=== PATIENT | female | born 1940 | race Caucasian/White ===

== ENCOUNTER 2024-09-19 18:53 | Observation (INO) | payer MEDICARE, OTHER, SELFPAY ==
[2024-09-19 18:57] VITALS: BP 151/84; PULSE 115; RESP 18; TEMP 37; O2SAT 97; BMI 30.8
--- NOTE | 2024-09-19 19:12 | ED.GENADULT ---
HPI - General Adult General Date Seen: 09/19/24 Chief complaint: Constipation Stated complaint: no bowel movement for a week Time Seen by Provider: 09/19/24 19:08 History of Present Illness HPI narrative: 80 yo F he presenting to the ER today with concern for constipation. She has not a bowel movement in about a week. She had fallen and her left shoulder recently had and has been spending some time in a TCU. She was discharged from the TCU last Thursday, 6 days ago. She staying with her daughter. She has not had any bowel movements for a week so came here to the ER tonight. She does have a past medical history of AFib and history of PE so has been on warfarin for several years. Most recent INR was about a week ago and was 2.1. She is due for another INR check in 2 days. She has a history of previous hysterectomy, cholecystectomy. She had a bowel obstruction that required operative intervention last January. At that time she was living in [facility] and had her surgery at the hospital there. She had a fall with a left shoulder fracture in June. She had a long stay in the TCU and was discharged from the TCU to live with her daughter last Thursday. She has been with her daughter here in [place] for the past week and has plans to move into an assisted living next week. Since she left the TCU, she has not had any bowel movement for the past 7 days. She does have a history of struggle with constipation in regular bowel so is normally on MiraLax once capful every day. She has been taking that as she always does. She also took a couple of senna today but has not been able to have any bowel. She has some mild right-sided pain but not really any significant abdominal pain. No fever. A little bit of a poor appetite but no nausea. Urination have been normal up until today where she feels like she cannot urinate. She came to the ER because it has been a week since her last bowel movement. She is concerned she has another bowel obstruction. She is not having an abdominal distension. Pants fit normally. No fever. Related Data Home Medications ?Medication ?Instructions ?Recorded ?Confirmed citalopram 20 mg tablet 20 mg PO DAILY 09/19/24 09/19/24 simvastatin 20 mg tablet 20 mg PO QPM 09/19/24 09/19/24 warfarin 1 mg tablet 1 mg PO DAILY 09/19/24 09/19/24 Allergies Allergy/AdvReac Type Severity Reaction Status Date / Time alendronate sodium AdvReac gi upset Verified 09/19/24 20:51 ciprofloxacin AdvReac Verified 09/19/24 20:51 pantoprazole AdvReac Verified 09/19/24 20:51 sucralfate AdvReac Verified 09/19/24 20:51 Sulfa (Sulfonamide AdvReac nausea Verified 09/19/24 20:51 Antibiotics) Exam Narrative: Exam Narrative: Constitutional: Appears well-developed and well-nourished. Alert. Conversant. Non toxic. HENT: Head: Atraumatic. Nose: Nose normal. Mouth/Throat: Oral mucosa is clear and moist. no trismus. Pharynx normal. Tonsils symmetric. No tonsillar enlargement, erythema, or exudate. Eyes: Conjunctivae normal. EOM normal. Pupils equal, round, and reactive to light. No scleral icterus. Neck: Normal range of motion. Neck supple. No tracheal deviation present. Cardiovascular: Normal rate, regular rhythm. No gallop. No friction rub. No murmur heard. Symmetric radial artery pulses Pulmonary/Chest: Effort normal. No stridor. No respiratory distress. No wheezes. No rales. No rhonchi . No tenderness. Abdominal: Soft. Bowel sounds hyperactive but not really tingling and rushing. Non tympanic. No distension. No mass. Right mid and right lower quadrant tenderness. No rebound. No guarding. Healed midline surgical incision from her obstruction surgery last fall. Musculoskeletal: RUE: Normal range of motion. No tenderness. No deformity LUE: Normal range of motion. No tenderness. No deformity RLE: Normal range of motion. No edema. No tenderness. No deformity LLE: Normal range of motion. No edema. No tenderness. No deformity Neurological: Alert and oriented to person, place, and time. Normal strength. CN II-VII intact. No sensory deficit. GCS eye subscore is 4. GCS verbal subscore is 5. GCS motor subscore is 6. Normal coordination Skin: Skin is warm and dry. No rash noted. No pallor. Normal capillary refill. Psychiatric: Normal mood. Normal affect. Const: Vital Signs, click to edit/add: Vital Signs - 24 hr 09/19/24 18:57 09/19/24 22:12 Temperature 98.6 F Pulse Rate 93 Pulse Rate [Pulse Oximeter] 115 H Respiratory Rate 18 16 Blood Pressure 168/96 H Blood Pressure [Ri ght Upper Arm] 151/84 H Pulse Oximetry 97 97 Oxygen Delivery Me thod Room Air Room Air Course Vital Signs Vital signs: Initial Vital Signs Temperature 98.6 F 09/19/24 18:57 Temperature Source Temporal Artery Scan 09/19/24 18:57 Pulse Rate 115 H 09/19/24 18:57 Pulse Rhythm Regular 09/19/24 18:57 Respiratory Rate 18 09/19/24 18:57 Blood Pressure 151/84 H 09/19/24 18:57 Blood Pressure Mean 106 H 09/19/24 18:57 Blood Pressure Position Sitting 09/19/24 18:57 Pulse Oximetry 97 09/19/24 18:57 Oxygen Delivery Method Room Air 09/19/24 18:57 Vital Signs Temperature 98.6 F 09/19/24 18:57 Pulse Rate 115 H 09/19/24 18:57 Respiratory Rate 18 09/19/24 18:57 Blood Pressure 151/84 H 09/19/24 18:57 Pulse Oximetry 97 09/19/24 18:57 Oxygen Delivery Method Room Air 09/19/24 18:57 Temperature 98.6 F 09/19/24 18:57 Pulse Rate 93 09/19/24 22:12 Respiratory Rate 16 09/19/24 22:12 Blood Pressure 168/96 H 09/19/24 22:12 Pulse Oximetry 97 09/19/24 22:12 Oxygen Delivery Method Room Air 09/19/24 22:12 Medications Administered Medications: Discontinued Medications Generic Name Dose Route Start Last Admin Trade Name Freq PRN Reason Stop Dose Admin Sodium Chloride 500 mls @ 500 mls/hr 09/19/24 19:30 09/19/24 22:24 0.9 % Sodium Chloride 500 Ml IV 09/19/24 20:29 Infused .Q1H ONE Infusion Medical Decision Making MDM Narrative Medical decision making narrative: Very pleasant 84-year-old female presenting to the ER today with her daughter for evaluation of inability to pass bowel movement for now for 7 days. She does have a history of ?irregular? bowel movements for many years and had typically has to use MiraLax daily to prevent constipation. She also has history of a mechanical small bowel obstruction requiring surgery in January 2024 (at [facility]). She fell and fractured her left shoulder in June and has been staying in a TCU for a couple of months since then. She had temporarily been on oxycodone for her shoulder fracture in June, but has not been on any opiate pain killers now for several weeks. She was just discharged from the TCU last week and has not been able have a bowel movement since discharge. Concern here is for possible recurrent small bowel obstruction or other complication leading to constipation. Laboratory workup and CT scan are obtained and generally look reassuring. CT scan does show constipation and also signs of stercoral colitis. No sign of obstruction, perforation, abscess, or other acute surgical emergency. Laboratory workup reassuring. INR is slightly subtherapeutic tonight. After bowel obstruction was ruled out we did try to take steps to deal with her constipation. She was not able to pass p.m. after Fleet enema. We did attempt manual disimpaction and there is a fair amount of soft stool in her rectum. I was able to remove small bits of it but there is still a lot of stool higher up. After this we also ordered oral senna and MiraLax. Given the stercoral colitis, patient's generalized weakness, we do not think she is going to be able . to successfully past the constipation at home. Patient will require admission for additional clean out. I have ordered pink lady enema to be given. Discussed with our hospitalist, Dr. Graves. She graciously came to the ER to evaluate the patient for admission. Admission status Lab Data Labs: Lab Results 09/19/24 Range/Units 19:31 WBC 10.29 (4.50-11.00) K/uL RBC 4.29 (4.00-5.20) m/uL Hgb 13.0 (12.0-16.0) gm/dL Hct 40.2 (33.0-51.0) % MCV 94 (80-100) fL MCH 30 (26-34) pg MCHC 32 (32-36) gm/dL RDW Coeff of [place]el[place] 14.3 (11.5-15.5) % Plt Count 300 (140-440) K/uL Neut % (Auto) 76.4 H (42.0-72.0) % Lymph % (Auto) 16.3 L (20-44) % [place] % (Auto) 6.0 (0.0-11.0) % Eos % (Auto) 0.9 (0.0-7.0) % Baso % (Auto) 0.2 (0.0-3.0) % Neut # (Auto) 7.90 H (1.7-7.0) K/uL Lymph # (Auto) 1.70 (0.90-2.90) K/uL [place] # (Auto) 0.60 (0.00-0.90) K/UL Eos # (Auto) 0.09 (0.00-0.50) K/uL Baso # (Auto) 0.02 (0.00-0.30) K/uL Abs Immat Gran (auto) 0.02 (0.00-0.30) K/uL Imm/Tot Granulo (auto) 0.2 % INR 1.80 H (0.91-1.10) Sodium 136 (135-149) mmol/L Potassium 4.2 (3.6-5.1) mmol/L Chloride 100 (96-114) mmol/L Carbon Dioxide 27 (20-32) mmol/L Anion Gap 9 (7-15) mEq/L BUN 25 (7-30) mg/dL Creatinine 1.0 (0.5-1.5) mg/dL Estimated Creat Clear 44.48 Estimated GFR 55 ml/min Glucose 101 (60-115) mg/dL Lactate 1.0 (0.5-1.9) mmol/L Calcium 10.2 (8.4-10.6) mg/dL Total Bilirubin 1.9 H (0.1-1.5) mg/dL AST 40 H (12-35) U/L ALT 24 (4-35) U/L Alkaline Phosphatase 89 (40-150) U/L Total Protein 8.4 H (6.0-8.3) g/dL Albumin 4.8 (3.3-5.0) g/dL Lipase 39 (23-300) U/L Urine Color Yellow (Yellow) Urine Appearance Clear (Clear) Urine pH 7.0 (5.0-8.5) Ur Specific [place] 1.015 (1.000-1.030) Urine Protein Negative (Negative) Urine Glucose (UA) Negative (Negative) Urine Ketones Trace A (Negative) Urine Blood Trace-intact A (Negative) Urine Nitrite Negative (Negative) Urine Bilirubin Negative (Negative) Urine Urobilinogen 0.2 (0.2-1.0) Ur Leukocyte Esterase 1+ A (Negative) Urine RBC 0-2 (0-2) Urine WBC 2-5 (0-5) Ur Squamous Epith Cells Moderate A (None-Few) Urine Bacteria Few A (None) Imaging Data CT scan - abdomen: Attestation: I have reviewed the pertinent imaging results. Radiologist's impression: IMPRESSIONS: 1. Moderate fecal impaction is noted in the rectal vault. There are also surrounding infiltration of the perirectal fat and presacral edema seen, suspicious for stercoral colitis. Clinical correlation and followup is recommended. 2. There is a multiloculated cystic subpleural structure measuring 1.8 cm in the right lateral costophrenic sulcus. Comparison with any prior outside imaging is recommended. If these cannot be obtained, follow up chest CT in 3 months is warranted to document stability. Discharge Plan Discharge Clinical Impression: Constipation, Stercoral colitis Patient Disposition: Admitted As Observation Condition: Stable
--- NOTE | 2024-09-19 19:30 | CRLHL7_ITS ---
For Patients: As a result of the Century Cures Act, medical imaging exams and procedure reports are released immediately into your electronic medical record. You may view this report before your referring provider. If you have questions, please contact your health care provider. INDICATION: Right side abdominal pain, no bowel movement for 7 days. TECHNIQUE: CT Abdomen and pelvis with i.v. contrast. Coronal and sagittal reformats were obtained. CONTRAST: 100 mL Omnipaque 350 COMPARISON: None FINDINGS: Lower chest: There is a 13 mm calcified granuloma present in the medial left lower lobe. There is a multiloculated cystic subpleural structure measuring 1.8 cm in the right lateral costophrenic sulcus. There is a pleural plaque measuring 1.4 cm over the dome of the right hemidiaphragm. Liver: Unremarkable. Spleen: Unremarkable. Pancreas: Unremarkable. Gallbladder: Previous cholecystectomy noted with no significant intra- or extrahepatic biliary ductal dilatation seen. Kidney: Unremarkable. No kidney or ureteral stones or obstruction seen. Adrenal: Unremarkable. Bowel: A large amount of stool is present throughout the colon which may be due to chronic constipation. The stomach, small bowel, and colon are unremarkable. The appendix is normal in appearance and size. Vascular: Unremarkable. Lymph: Unremarkable. Peritoneum: Unremarkable. No pneumoperitoneum is seen. No significant ascites is noted. Pelvis: The patient is status post hysterectomy. Moderate fecal impaction is noted in the rectal vault. There are also surrounding infiltration of the perirectal fat and presacral edema seen, suspicious for stercoral colitis. Soft tissue: Unremarkable. Bone: Unremarkable for age. IMPRESSIONS: 1. Moderate fecal impaction is noted in the rectal vault. There are also surrounding infiltration of the perirectal fat and presacral edema seen, suspicious for stercoral colitis. Clinical correlation and followup is recommended. 2. There is a multiloculated cystic subpleural structure measuring 1.8 cm in the right lateral costophrenic sulcus. Comparison with any prior outside imaging is recommended. If these cannot be obtained, follow up chest CT in 3 months is warranted to document stability. Dictated by Sahil Sarmiento MD @ 09/19/2024 9:40:17 PM Please note that all CT scans at this facility use dose modulation, iterative reconstruction, and/or weight-based dosing when appropriate to reduce radiation dose to as low as reasonably achievable. Dictated by: Sahil Sarmiento MD @ 09/19/2024 21:40:30 (Electronically Signed)
[2024-09-19 19:56] LABS: Hematocrit 40.2 % (33.0-51.0); Hemoglobin* 13.0 gm/dL (12.0-16.0); Immature Granulocytes Abs Auto 0.02 K/uL (0.00-0.30); Immature Granulocytes Pct Auto 0.2 %; Mean Corpuscular HGB Conc 32 gm/dL (32-36); Mean Corpuscular Hemoglobin 30 pg (26-34); Mean Corpuscular Volume 94 fL (80-100); RDW Coefficient of Variation % 14.3 % (11.5-15.5); Red Blood Count 4.29 m/uL (4.00-5.20); White Blood Count* 10.29 K/uL (4.50-11.00)
[2024-09-19 19:57] LABS: Lactate* 1.0 mmol/L (0.5-1.9); Lymphocytes Absolute Auto 1.70 K/uL (0.90-2.90); Slide Review Reflex No
[2024-09-19 20:24] LABS: Albumin* 4.8 g/dL (3.3-5.0); Chloride* 100 mmol/L (96-114); Potassium* 4.2 mmol/L (3.6-5.1); Sodium* 136 mmol/L (135-149)
[2024-09-19 20:26] LABS: Blood Urea Nitrogen* 25 mg/dL (7-30); Creatinine* 1.0 mg/dL (0.5-1.5); Est. Creatinine Clearance* 44.48; Estimated Glomerular Filt Rate 55 ml/min
[2024-09-19 20:27] LABS: Alanine Aminotransferase* 24 U/L (4-35); Alkaline Phosphatase* 89 U/L (40-150); Anion Gap 9 mEq/L (7-15); Aspartate Amino Transferase* 40 U/L (12-35); Bilirubin Total* 1.9 mg/dL (0.1-1.5); Calcium* 10.2 mg/dL (8.4-10.6); Carbon Dioxide* 27 mmol/L (20-32); Glucose* 101 mg/dL (60-115); Total Protein* 8.4 g/dL (6.0-8.3)
[2024-09-19 20:32] LABS: Appearance Urine Clear (Clear)
[2024-09-19 20:37] LABS: INR 1.80 (0.91-1.10); Prothrombin Time 21.9 Seconds
[2024-09-19] MEDS: 0.9 % SODIUM CHLORIDE 500 ML 500 ML IV (20:51)
[2024-09-19 22:12] VITALS: BP 168/96; PULSE 93; RESP 16; O2SAT 97
--- NOTE | 2024-09-19 23:37 | PM.IMHP1 ---
Assessment and Plan Assessment and plan (1) Stercoral colitis: Status: Acute (2) Constipation: Status: Acute (3) Cyst: Status: Acute (4) Atrial fibrillation: Status: Acute Hospitalist- H&P: HPI History of Present Illness Time Seen by Provider: 23:37 Date Seen: 09/19/24 Chief complaint: no bowel movement for a week Narrative: Katy Ortega is a 84 year old female with a history of a fib and prior PE on warfarin, hyperlipidemia, prior bowel obstruction requiring surgical intervention, depression and recent TCU stay after a shoulder fracture who presents with consitpation. Patient reports that she recently discharged from the TCU 6 days ago and has not had a BM since then. She does get constipation from time to time, but it is typically well managed with miralax once daily. The only real change in her habits since leaving TCU has been that she is not drinking coffee where she was drinking 2 cups per day at the TCU. She has minimal abdominal pain, but is starting to have a decrease in her appetite. No nausea, vomiting or increased abdominal girth is noted. In the ER, multiple attempts were made to help move her bowels including miralax, fleets enema, manual disimpaction and a pink lady enema. CT scan confirms significant stool burden and early stercoral colitis. She has not been taking opiods in several weeks, making OIC less likely. CT is not consistent with an obstructive pattern. She denies any other concerns, including no fever, chest pain, shortness of breath or other symptoms. Review of Systems Status of ROS: Reports: 10 or more systems reviewed and unremarkable except as noted in History and below [facility] Medical History (Updated 09/19/24 @ 23:48 by Cinthia Graves MD) Pulmonary embolism ?I26.99 - Other pulmonary embolism without acute cor pulmonale (ICD-10) Meds Home Medications and Allergies Home Medications ?Medication ?Instructions ?Recorded ?Confirmed ?Type citalopram 20 mg tablet 20 mg PO DAILY 09/19/24 09/19/24 History simvastatin 20 mg tablet 20 mg PO QPM 09/19/24 09/19/24 History warfarin 1 mg tablet 1 mg PO DAILY 09/19/24 09/19/24 History Allergies Allergy/AdvReac Type Severity Reaction Status Date / Time alendronate sodium AdvReac gi upset Verified 09/19/24 20:51 ciprofloxacin AdvReac Verified 09/19/24 20:51 pantoprazole AdvReac Verified 09/19/24 20:51 sucralfate AdvReac Verified 09/19/24 20:51 Sulfa (Sulfonamide AdvReac nausea Verified 09/19/24 20:51 Antibiotics) Exam Narrative: Exam Narrative: General: Mildly uncomfortable, but no distress HEENT: NCAT Resp: Breathing is comfortable and unlabored, CTAB CV: IRR, no murmur Abd: Upper quadrants fairly soft, nontender. There is palpable stool in the suprapubic and left lower quadrant with mild tenderness Neuro: Nonfocal, AAOx3 Const: Vital Signs, click to edit/add: Vital Signs - 24 hr 09/19/24 18:57 09/19/24 22:12 Temperature 98.6 F Pulse Rate 93 Pulse Rate [Pulse Oximeter] 115 H Respiratory Rate 18 16 Blood Pressure 168/96 H Blood Pressure [Ri ght Upper Arm] 151/84 H Pulse Oximetry 97 97 Oxygen Delivery Me thod Room Air Room Air Hospitalist - H&P: Result Labs Labs: Short CBC 09/19/24 Range/Units 19:31 WBC 10.29 (4.50-11.00) K/uL Hgb 13.0 (12.0-16.0) gm/dL Hct 40.2 (33.0-51.0) % Plt Count 300 (140-440) K/uL BMP 09/19/24 19:31 Sodium 136 Potassium 4.2 Chloride 100 Carbon Dioxide 27 BUN 25 Creatinine 1.0 Glucose 101 Calcium 10.2 Liver Function 09/19/24 Range/Units 19:31 Total Bilirubin 1.9 H (0.1-1.5) mg/dL AST 40 H (12-35) U/L ALT 24 (4-35) U/L Alkaline Phosphatase 89 (40-150) U/L Albumin 4.8 (3.3-5.0) g/dL Urine 09/19/24 Range/Units 19:31 Urine Color Yellow (Yellow) Urine Appearance Clear (Clear) Urine pH 7.0 (5.0-8.5) Ur Specific [place] 1.015 (1.000-1.030) Urine Protein Negative (Negative) Urine Glucose (UA) Negative (Negative) Imaging CT scan - abdomen: Attestation: I have reviewed the pertinent imaging results. Radiologist's impression: IMPRESSIONS: 1. Moderate fecal impaction is noted in the rectal vault. There are also surrounding infiltration of the perirectal fat and presacral edema seen, suspicious for stercoral colitis. Clinical correlation and followup is recommended. 2. There is a multiloculated cystic subpleural structure measuring 1.8 cm in the right lateral costophrenic sulcus. Comparison with any prior outside imaging is recommended. If these cannot be obtained, follow up chest CT in 3 months is warranted to document stability. Dictated by Sahil Sarmiento MD @ 09/19/2024 9:40:17 PM
[2024-09-19] MEDS: SENNOSIDES 1 TAB TABLET PO (23:52)
[2024-09-19] MEDS: DOC/MIN OIL/MAG CIT/SOD PHOS 376 ML ENEMA PR (23:53)
[2024-09-20] VITALS (7 sets, daily range): BP systolic 130–167; BP diastolic 68–87; PULSE 85–95; RESP 16–18; TEMP 36.6–37; O2SAT 95–97
--- NOTE | 2024-09-20 02:27 | W.PM.TELEH&P ---
Telehealth- H&P: HPI History of Present Illness Date Seen: 09/20/24 Chief complaint: no bowel movement for a week Narrative: Katy Ortega is seen as an Interactive Telehealth visit. Katy Ortega is a 84 year old female who Presents to hospital with complaints of constipation. Patient has a known history of bowel issues. Last year she was admitted to the hospital for bowel obstruction. She underwent a laparoscopic surgery and underwent lysis of adhesions per patient. She did not have any bowel resection. She has done well since. She started developing constipation last week. She has not had a bowel movement in over a week. She has been trying to take in water but it has not been helping. When she came to the emergency room, she was noted to be medically stable, with no significant distention and no nausea vomiting. They tried multiple efforts with multiple enemas and rectal disimpaction but was unsuccessful. CT scan of the abdomen was obtained. It shows moderate to large stool burden with possible sterocolitis. Patient does not have any significant pain however. No bleeding per rectum. Review of Systems Status of ROS: Reports: 10 or more systems reviewed and unremarkable except as noted in History and below Const: Denies: fever Cardio: Denies: chest pain, palpitations, edema, swelling of feet/ankles, lightheadedness or shortness of breath with exertion Resp: Denies: shortness of breath or cough GI: Reports: constipation, bloating and rectal pain; Denies: abdominal pain, nausea or vomiting : Denies: painful urination Musculo: Denies: back pain Psych: Denies: anxiety Endo: Denies: excessive urination or excessive thirst [facility] Medical History (Updated 09/19/24 @ 23:48 by Cinthia Graves MD) Pulmonary embolism ?I26.99 - Other pulmonary embolism without acute cor pulmonale (ICD-10) Social History What is your current living situation?: I presently have a place to live Problems where you live: no known problems Problems where you live details: N/A In the past 12 months, utilities in danger of being shut off: no In past 12 months, lack of transportation kept you from medical appts, meetings, work, or getting things needed for daily living: yes In the past 12 mos, have been you worried that your food would run out before you had money to buy more?: never true In the past 12 mos, the food you bought just didn't last and you didn't have money to buy more?: never true Smoking Status: Never smoker How often do you have a drink containing alcohol: never AUDIT-C Alcohol total score: 0 Non-prescribed substance use: denies use How often does anyone, including family, friends and others, physically hurt you: never How often does anyone, including family, friends and others, insult or talk down to you: never How often does anyone, including family, friends and others, threaten you with harm: never How often does anyone, including family, friends and others, scream or curse at you: never service: No Health Related Social Needs: transportation insecurity (Z59.82) Meds Home Medications and Allergies Home Medications ?Medication ?Instructions ?Recorded ?Confirmed ?Type citalopram 20 mg tablet 20 mg PO DAILY 09/19/24 09/19/24 History simvastatin 20 mg tablet 20 mg PO QPM 09/19/24 09/19/24 History warfarin 1 mg tablet 1 mg PO DAILY 09/19/24 09/19/24 History Allergies Allergy/AdvReac Type Severity Reaction Status Date / Time alendronate sodium AdvReac gi upset Verified 09/19/24 20:51 ciprofloxacin AdvReac Verified 09/19/24 20:51 pantoprazole AdvReac Verified 09/19/24 20:51 sucralfate AdvReac Verified 09/19/24 20:51 Sulfa (Sulfonamide AdvReac nausea Verified 09/19/24 20:51 Antibiotics) Exam Narrative Exam Narrative: Physical Exam GENERAL: ?vital signs reviewed, well developed and nourished, in no distress HEENT: pupils are equal round and reactive to light, extraocular movements are grossly within normal limits and oral mucosa is dry. NECK: Supple without lymphadenopathy or thyromegaly according to nursing staff examination observation HEART: Regular rate and rhythm without any rubs, murmurs, or gallops. LUNGS: Clear to auscultation bilaterally with good air movement throughout ABDOMEN: hyperactive bowel sounds, mild tenderness on LLQ. EXTREMITIES: Strength and sensation is observed to be grossly within normal limits in the upper and lower extremities.? No focal strength deficit is observed. SKIN:? Observed warm and dry with color normal Const Vital Signs, click to edit/add: Vital Signs - 24 hr 09/19/24 18:57 09/19/24 22:12 09/20/24 01:27 Temperature 98.6 F Pulse Rate 93 Pulse Rate [Pulse Oximeter] 115 H Pulse Rate [Right Pulse Oximeter] Respiratory Rate 18 16 16 Blood Pressure 168/96 H Blood Pressure [Left Arm] Blood Pressure [Right Upper Arm] 151/84 H Pulse Oximetry 97 97 97 Oxygen Delivery Method Room Air Room Air Room Air 09/20/24 01:27 Temperature 98.6 F Pulse Rate Pulse Rate [Pulse Oximeter] Pulse Rate [Right Pulse Oximeter] 95 Respiratory Rate 16 Blood Pressure Blood Pressure [Left Arm] 159/86 H Blood Pressure [Right Upper Arm] Pulse Oximetry 97 Oxygen Delivery Method Room Air Common normals: no apparent distress, oriented x3 and alert Neuro Common normals: oriented x3 Sensorium/orientation: alert Hospitalist - H&P: Result Labs Labs: Short CBC 09/19/24 Range/Units 19:31 WBC 10.29 (4.50-11.00) K/uL Hgb 13.0 (12.0-16.0) gm/dL Hct 40.2 (33.0-51.0) % Plt Count 300 (140-440) K/uL BMP 09/19/24 19:31 Sodium 136 Potassium 4.2 Chloride 100 Carbon Dioxide 27 BUN 25 Creatinine 1.0 Glucose 101 Calcium 10.2 Liver Function 09/19/24 Range/Units 19:31 Total Bilirubin 1.9 H (0.1-1.5) mg/dL AST 40 H (12-35) U/L ALT 24 (4-35) U/L Alkaline Phosphatase 89 (40-150) U/L Albumin 4.8 (3.3-5.0) g/dL Urine 09/19/24 Range/Units 19:31 Urine Color Yellow (Yellow) Urine Appearance Clear (Clear) Urine pH 7.0 (5.0-8.5) Ur Specific [place] 1.015 (1.000-1.030) Urine Protein Negative (Negative) Urine Glucose (UA) Negative (Negative) Assessment and Plan Assessment and plan (1) Atrial fibrillation: Status: Acute (2) Stercoral colitis: Status: Acute (3) Constipation: Status: Acute (4) Cyst: Status: Acute Plan This patient is being admitted to the hospital secondary to severe constipation that is possibly developing to stercoral colitis. I have ordered a GoLytely prep. The purpose is to get appropriate some bowel movements. She was administered multiple enemas without any benefit. They did multiple attempts of rectal disimpaction but were unable to get so far. I have placed a surgical consult in case the GoLytely prep is not successful. Option could be disimpaction under anesthesia. I do not think she has an obstruction at this time. CT does not show any evidence. Clinically she is not obstructed. I placed her on a clear liquid diet Patient has a history of atrial fibrillation currently rate controlled. I will have pharmacy continue on Coumadin. History of incidental finding of lung cysts. This is an incidental finding on CT scan will need follow-up. Telehealth Visit: Todays History and Physical is via interactive telehealth by Dr Robert Curry MD The Patient is located [facility]: Physician is located at [facility]. Nursing staff assisted in the patient's exam. The visit being done today meets criteria for a telehealth visit and the patient or patient's parent/guardian is aware the visit is a telehealth visit. Camera Start time 130 Camera End time 200 Telehealth: Statement Statement Telehealth Visit: Today's History and Physical is provided via interactive telehealth by Robert Curry MD.? Patient is located at [facility].? Provider is located at [facility].? Nursing staff assisted with the patient's exam. The visit being done today meets criteria for a telehealth visit and the patient or patient?s parent/guardian is aware the visit is a telehealth visit.
[2024-09-20] MEDS: PEG-3350 SODIUM CL/BICARB-KCL 4,000 ML SOLN 4000 ML PO (03:08)
--- NOTE | 2024-09-20 05:35 | PC.NURSE ---
Shift note: Patient arrived to the floor at 0105 accompanied by her daughter. Patient had trouble passing stool but active bowel sound in all 4 quadrants. GI prep started at 0240. Patient is able to drink about 600ml as at the time of the report. At 0510Luna
--- NOTE | 2024-09-20 05:46 | PC.NURSE ---
Shift note: Patient arrived to the floor at 0105 accompanied by her daughter. Patient had trouble passing stool but active bowel sound in all 4 quadrants. GI prep started at 0240. Patient is able to drink about 600ml as at the time of the report. At 0510, Patient had explosive BM 2x. No fever,abdominal pain, N/V reported. Bp appeared elevated. MD informed. Patient is A1, walker and GB. Patient self-transfer at 0530 to without using the call light. Re-educate on the need to use the call light to avoid falls while on admission.
[2024-09-20 08:30] LABS: INR 1.73 (0.91-1.10); Prothrombin Time 21.3 Seconds
[2024-09-20] MEDS: CITALOPRAM HYDROBROMIDE 20 MG TABLET PO (09:41)
--- NOTE | 2024-09-20 12:20 | P.IMPN_ITS ---
Assessment and Plan Assessment and plan (1) Constipation: Problem comment: Acute on chronic, recurrent Finish GoLYTELY prep. Consider MiraLax/Gatorade if becomes nauseous or vomits, unable to tolerate GoLYTELY Continue clears Start milk of Mag as well as senna for 1 week course Status: Acute (2) Stercoral colitis: Problem comment: CT shows Moderate fecal impaction is noted in the rectal vault. There are also surrounding infiltration of the perirectal fat and presacral edema seen, suspicious for stercoral colitis Discussed with General surgery, Dr. Patterson - would like patient to finish all of GoLYTELY prep. Initiate milk of Mag for 1 week as well as start senna. As patient has had 2 large bowel movements, general surgery consult otherwise not needed currently Status: Acute (3) Atrial fibrillation: Problem comment: On chronic anticoagulation, pharmacy to manage Status: Acute (4) Lung cyst: Problem comment: Incidental finding. CT shows There is a multiloculated cystic subpleural structure measuring 1.8 cm in the right lateral costophrenic sulcus. Comparison with any prior outside imaging is recommended. If these cannot be obtained, follow up chest CT in 3 months is warranted to document stability Outpatient follow-up with PCP Status: Acute Plan Complete prep for further bowel evacuation. Likely discharge home tomorrow Total Time Spent Total Time Spent: Today I spent 75 minutes seeing the patient, reviewing Expanse and EPIC notes/diagnostics, discussing the care plan with our care time that includes social work, PT/OT, pharmacy, RT, intermediate and documenting my impressions and plan in the medical record. Subjective Date Seen: 09/20/24 Interval history: Patient is seen with and daughter at bedside. Reports that patient had 2 large bowel movements overnight after starting GoLYTELY. Feeling better this morning. Denies headache or dizziness. Denies chest pain or shortness of breath. Tolerating clears without nausea vomiting. No increase in abdominal pain. Normal home daily bowel cares include MiraLax and Metamucil daily as well as 2 cups of black coffee. She recently left SNF, transitioning to her daughter's home, and has not been taking her Metamucil or drinking her black coffee. Exam Narrative: Exam Narrative: PHYSICAL EXAM General: Pleasant, conversant, NAD HEENT: Normocephalic, atraumatic, sclera white, EOMI, oral mucosa moist Cardiovascular: RRR, S1S2. No pitting edema Pulmonary: CTA bilaterally without rhonchi, rales, expiratory wheezes. No dyspnea Abdominal: Soft, nondistended, NTTP currently Neurological: Alert, answering questions appropriately, cranial nerves intact, no focal findings Extremities: No gross joint deformity or swelling. AROMI. Neurovascularly intact Skin: Warm, dry. Const: Vital Signs, click to edit/add: Vital Signs - 24 hr 09/19/24 18:57 09/19/24 22:12 09/20/24 01:27 Temperature 98.6 F Pulse Rate 93 Pulse Rate [Pulse Oximeter] 115 H Pulse Rate [Right Pulse Oximeter] Respiratory Rate 18 16 16 Blood Pressure 168/96 H Blood Pressure [Le ft Arm] Blood Pressure [Ri ght Upper Arm] 151/84 H Pulse Oximetry 97 97 [address] Room Air Room Air 09/20/24 01:27 09/20/24 02:44 09/20/24 07:00 Temperature 98.6 F 98 F 98.2 F Pulse Rate Pulse Rate [Pulse Oximeter] Pulse Rate [Right Pulse Oximeter] 95 88 85 Respiratory Rate 16 16 18 Blood Pressure Blood Pressure [Le ft Arm] 159/86 H 155/87 H 130/68 Blood Pressure [Ri ght Upper Arm] Pulse Oximetry 97 96 97 Oxygen Delivery Co thod Room Air Room Air Room Air 09/20/24 11:00 Temperature Pulse Rate Pulse Rate [Pulse Oximeter] Pulse Rate [Right Pulse Oximeter] 87 Respiratory Rate 16 Blood Pressure Blood Pressure [Le ft Arm] 167/75 H Blood Pressure [Ri ght Upper Arm] Pulse Oximetry 97 Oxygen Delivery Co thod Room Air Labs Labs: Laboratory Results - last 24 hr 09/19/24 09/20/24 19:31 08:03 WBC 10.29 RBC 4.29 Hgb 13.0 Hct 40.2 MCV 94 MCH 30 MCHC 32 RDW Coeff of Yel[place]za 14.3 Plt Count 300 Neut % (Auto) 76.4 H Lymph % (Auto) 16.3 L [place] % (Auto) 6.0 Eos % (Auto) 0.9 Baso % (Auto) 0.2 Neut # (Auto) 7.90 H Lymph # (Auto) 1.70 [place] # (Auto) 0.60 Eos # (Auto) 0.09 Baso # (Auto) 0.02 Abs Immat Gran (auto) 0.02 Imm/Tot Granulo (auto) 0.2 INR 1.80 H 1.73 H Sodium 136 Potassium 4.2 Chloride 100 Carbon Dioxide 27 Anion Gap 9 BUN 25 Creatinine 1.0 Estimated Creat Clear 44.48 Estimated GFR 55 Glucose 101 Lactate 1.0 Calcium 10.2 Total Bilirubin 1.9 H AST 40 H ALT 24 Alkaline Phosphatase 89 Total Protein 8.4 H Albumin 4.8 Lipase 39 Urine Color Yellow Urine Appearance Clear Urine pH 7.0 Ur Specific [place] 1.015 Urine Protein Negative Urine Glucose (UA) Negative Urine Ketones Trace A Urine Blood Trace-intact A Urine Nitrite Negative Urine Bilirubin Negative Urine Urobilinogen 0.2 Ur Leukocyte Esterase 1+ A Urine RBC 0-2 Urine WBC 2-5 Ur Squamous Epith Cells Moderate A Urine Bacteria Few A
[2024-09-20] MEDS: SIMVASTATIN 20 MG TABLET PO (18:32)
[2024-09-20] MEDS: WARFARIN 5 MG TABLET PO (18:32)
[2024-09-20] MEDS: SENNOSIDES/DOCUSATE TABLET 1 TAB PO (21:23)
[2024-09-20] MEDS: SODIUM CHLORIDE 0.9 % (FLUSH) 10 ML SYRINGE 5 ML IVF (21:23)
[2024-09-21 02:53] VITALS: BP 153/93; PULSE 86; RESP 18; TEMP 37.2; O2SAT 94
--- NOTE | 2024-09-21 05:37 | PC.NURSE ---
shift note: Patient is doing well. 1small BM tonight. Patient is still on GI prep. My goal was to finish the prep tonight but patient could not. No abdominal pain, nausea and vomiting. Clear liquid diet encouraged. Patient had adequate sleep. Bp was elevated, other vital signs stable.
[2024-09-21 06:46] LABS: Chloride* 104 mmol/L (96-114)
[2024-09-21 06:47] LABS: Potassium* 3.4 mmol/L (3.6-5.1); Sodium* 136 mmol/L (135-149)
[2024-09-21 06:49] LABS: Blood Urea Nitrogen* 14 mg/dL (7-30); Creatinine* 0.8 mg/dL (0.5-1.5); Est. Creatinine Clearance* 44.48; Estimated Glomerular Filt Rate 72 ml/min
[2024-09-21 06:50] LABS: Anion Gap 8 mEq/L (7-15); Calcium* 8.9 mg/dL (8.4-10.6); Carbon Dioxide* 24 mmol/L (20-32); Glucose* 72 mg/dL (60-115)
[2024-09-21 06:54] LABS: INR 1.55 (0.91-1.10); Prothrombin Time 19.5 Seconds
[2024-09-21 07:00] VITALS: PULSE 96; RESP 18
[2024-09-21 07:35] VITALS: BP 162/91; PULSE 96; RESP 18; TEMP 36.6; O2SAT 93
[2024-09-21] MEDS: CITALOPRAM HYDROBROMIDE 20 MG TABLET PO (08:42)
[2024-09-21] MEDS: SENNOSIDES/DOCUSATE TABLET 1 TAB PO (08:42)
[2024-09-21] MEDS: SODIUM CHLORIDE 0.9 % (FLUSH) 10 ML SYRINGE 5 ML IVF (08:43)
[2024-09-21] MEDS: MAGNESIUM HYDROXIDE 30 ML ORAL.SUSP PO (08:49)
--- NOTE | 2024-09-21 10:52 | PM.DS1 ---
DS: Providers Provider Date Seen: 09/21/24 Date of admission: 09/20/24 01:19 Primary care physician: Not a Local Provider Admitting Clinician: Robert Curry MD Consults: 09/20/24 02:20 Consult to Physician [CONS] Routine Comment: Consulting Provider: General Surgery, [facility] Has provider been notified: No Attending Physician on discharge: Rena Birmingham, LISA, [facility] Hospitalist Date of Discharge: 09/21/24 DS: Diagnosis Discharge Diagnosis (1) Constipation: Status: Acute Problem details: Acute on chronic, recurrent Finish GoLYTELY prep. Consider MiraLax/Gatorade if becomes nauseous or vomits, unable to tolerate GoLYTELY Continue clears Start milk of Mag as well as senna for 1 week course Prior to discharge, multiple bowel movements, clinical improvement. Resume home bowel regimen on discharge. Continue milk of magnesia as well as senna for 1 week. Patient follow-up with PCP. (2) Stercoral colitis: Status: Acute Problem details: CT shows Moderate fecal impaction is noted in the rectal vault. There are also surrounding infiltration of the perirectal fat and presacral edema seen, suspicious for stercoral colitis Discussed with General surgery, Dr. Patterson - would like patient to finish all of GoLYTELY prep. Initiate milk of Mag for 1 week as well as start senna. As patient has had 2 large bowel movements, general surgery consult otherwise not needed currently. Appreciate input. No further consult or surgical intervention necessary. (3) Atrial fibrillation: Status: Acute Problem details: On chronic anticoagulation, pharmacy to manage (4) Lung cyst: Status: Acute Problem details: Incidental finding. CT shows There is a multiloculated cystic subpleural structure measuring 1.8 cm in the right lateral costophrenic sulcus. Comparison with any prior outside imaging is recommended. If these cannot be obtained, follow up chest CT in 3 months is warranted to document stability Outpatient follow-up with PCP DS: Summary Hospital Course Hospital Course: Course of care and details as noted above. Remainder of chronic medical comorbidities were monitored and managed with home medications. Status at Discharge Functional status at discharge: independent ambulation Overall status at discharge: patient is back to baseline Time Spent with Patient Time attestation: Total time spent providing and/or coordinating discharge services: Time spent: Greater than 30 minutes Exam Narrative: Exam Narrative: PHYSICAL EXAM General: Pleasant, conversant, NAD Cardiovascular: RRR Pulmonary: No dyspnea Abdomen: Soft, nondistended, nontender Neurological: Alert, answering questions appropriately Skin: Warm, dry. Const: Vital Signs, click to edit/add: Vital Signs - 24 hr 09/20/24 11:00 09/20/24 15:00 09/20/24 19:00 Temperature 98.0 F 98.1 F Pulse Rate [Right Pulse Oximeter] 87 91 90 Respiratory Rate 16 18 18 Blood Pressure [Le ft Arm] 167/75 H 143/85 H 136/74 Pulse Oximetry 97 96 95 Oxygen Delivery Me thod Room Air Room Air Room Air 09/20/24 22:16 09/20/24 22:16 09/21/24 02:53 Temperature 98.3 F 98.9 F Pulse Rate [Right Pulse Oximeter] 86 86 86 Respiratory Rate 18 18 18 Blood Pressure [Le ft Arm] 141/79 H 153/93 H Pulse Oximetry 96 94 Oxygen Delivery Me thod Room Air Room Air 09/21/24 07:00 09/21/24 07:35 Temperature 97.8 F Pulse Rate [Right Pulse Oximeter] 96 96 Respiratory Rate 18 18 Blood Pressure [Le ft Arm] 162/91 H Pulse Oximetry 93 Oxygen Delivery Me thod Room Air DS: Data Data Completed and Pending Labs on day of discharge: Labs from last 24 hours 09/21/24 06:07 INR 1.55 H Sodium 136 Potassium 3.4 L Chloride 104 Carbon Dioxide 24 Anion Gap 8 BUN 14 Creatinine 0.8 Estimated Creat Clear 44.48 Estimated GFR 72 Glucose [address] scan - abdomen: Attestation: I have reviewed the pertinent imaging results. Radiologist's impression: Lower chest: There is a 13 mm calcified granuloma present in the medial left lower lobe. There is a multiloculated cystic subpleural structure measuring 1.8 cm in the right lateral costophrenic sulcus. There is a pleural plaque measuring 1.4 cm over the dome of the right hemidiaphragm. Liver: Unremarkable. Spleen: Unremarkable. Pancreas: Unremarkable. Gallbladder: Previous cholecystectomy noted with no significant intra- or extrahepatic biliary ductal dilatation seen. Kidney: Unremarkable. No kidney or ureteral stones or obstruction seen. Adrenal: Unremarkable. Bowel: A large amount of stool is present throughout the colon which may be due to chronic constipation. The stomach, small bowel, and colon are unremarkable. The appendix is normal in appearance and size. Vascular: Unremarkable. Lymph: Unremarkable. Peritoneum: Unremarkable. No pneumoperitoneum is seen. No significant ascites is noted. Pelvis: The patient is status post hysterectomy. Moderate fecal impaction is noted in the rectal vault. There are also surrounding infiltration of the perirectal fat and presacral edema seen, suspicious for stercoral colitis. Soft tissue: Unremarkable. Bone: Unremarkable for age. IMPRESSIONS: 1. Moderate fecal impaction is noted in the rectal vault. There are also surrounding infiltration of the perirectal fat and presacral edema seen, suspicious for stercoral colitis. Clinical correlation and followup is recommended. 2. There is a multiloculated cystic subpleural structure measuring 1.8 cm in the right lateral costophrenic sulcus. Comparison with any prior outside imaging is recommended. If these cannot be obtained, follow up chest CT in 3 months is warranted to document stability. Discharge Plan Discharge Disposition: Home, Self-Care Date of Admission: 09/20/24 01:19 Attending Provider on Discharge: Rena Birmingham Consulting Providers: Tori Chun; Taylor Patterson; Magdalena Gonzalez Primary Care Provider: Provider,Not a Local Condition: Stable Anticipated Discharge Date/Time: 09/21/24 10:48 Discharge Medications: New sennosides-docusate sodium [Stool Softener-Laxative] 8.6-50 mg Tablet 1 tab PO BID 7 Days Qty: 14 0RF magnesium hydroxide [Milk of Magnesia] 400 mg/5 mL Suspension 30 ml PO DAILY 7 Days Qty: 210 0RF Continued citalopram 20 mg tablet 20 mg PO DAILY simvastatin 20 mg tablet 20 mg PO QPM warfarin 1 mg tablet 1 mg PO DAILY Patient Comments: TOTAL DOSE = 4.75MG DAILY warfarin 7.5 mg tablet 3.75 mg PO DAILY Rx Instructions: TOTAL DOSE = 4.75MG DAILY polyethylene glycol 3350 [Miralax] 17 gram/dose powder 17 g PO DAILY simethicone [Gas Relief (simethicone)] 125 mg capsule 125 mg PO BID Rx Instructions: administer after meals multivitamin [Daily Multi-Vitamin] Tablet 1 tab PO DAILY cholecalciferol (vitamin D3) 50 mcg (2,000 unit) capsule 50 mcg PO DAILY vitamin B complex Tablet 1 tab PO DAILY calcium carbonate-vitamin D3 [Calcium 600 + D(3)] 600 mg-10 mcg (400 unit) tablet 1 tab PO DAILY lidocaine [AsperFlex (lidocaine)] 4 % adhesive patch,medicated 1 patch topical DAILY diclofenac sodium 1 % gel 2 g topical QID Rx Instructions: apply to single elbow, wrist or hand; for hand includes palm/fingers/back of hand Acidophilus Capsule 10 mg PO DAILY Discharge Orders: Discharge Order (Routine); Ordered 09/21/24 Ordered By: Rena Birmingham Patient Education: Magnesium Hydroxide (By mouth) (Dulcolax Milk of Magnesia, Milk Of..., Senna (By mouth) (Sen, Senna-lax), Constipation (DC) Additional Instructions: Resume your usual home bowel regimen - MiraLax and Metamucil daily. Black coffee. For the next 7 days, continue to take milk of magnesia and senna. Activity Level: No Restrictions and Activity as Tolerated Activity Detail: Encourage ambulation Discharge Diet: Regular Follow Up Appointments: Provider,Not a Local [Primary Care Provider, Family Practice] Referral Note: Post hospital follow-up 3-7 days Forms: MyHealth Info Instructions
[2024-09-21 12:23] VITALS: BP 143/78; PULSE 99; RESP 18; TEMP 36.7; O2SAT 98
--- NOTE | 2024-09-21 17:04 | PC.NURSE ---
Discharge: Patient pleasant and cooperative, A&O. VSS, afebrile. SpO2 maintained above 90% on RA. Patient has had multiple loose BM's this shift. Denies pain. IV removed with tip intact. Discharge instructions provided, all questions answered. Discharged to home with daughter
== END 2024-09-21 16:39 | disposition home or self-care (01) ==
LOC: ED 23:21 → MEDSURG 09-20 01:23
PROVIDERS: Physician Assistant; Admitting Provider Student in an Organized Health Care Education/Training Program; Emergency Provider Emergency Medicine; Visit Provider Student in an Organized Health Care Education/Training Program
DX: K59.09 Other constipation (principal); K52.89 Other specified noninfective gastroenteritis and colitis; I48.91 Unspecified atrial fibrillation; Z86.711 Personal history of pulmonary embolism; Z79.01 Long term (current) use of anticoagulants; Z59.82 Transportation insecurity; J98.4 Other disorders of lung; R10.9 Unspecified abdominal pain; R82.90 Unspecified abnormal findings in urine
CPT/HCPCS: 36415; 74177; 80048; 80053; 81001; 83605; 83690; 85025; 85610; 87086; 96360; 96361; 99283; 99284; 99285; A9270; G0378; J7030; Q9967